=== PATIENT | female | born 1985 | race Two or more races ===

== ENCOUNTER 2016-12-29 14:59 | Emergency (ER) | payer OTHER ==
[~2016-12-29] VITALS: Ht 144.8 cm; Wt 92.0 kg
[2016-12-29 15:13] VITALS: Ht 144.8 cm; Wt 92.0 kg
--- NOTE | 2016-12-29 17:11 | RADRPT ---
PROCEDURE: Shoulder x-ray CLINICAL INDICATION: Pain TECHNIQUE: Left shoulder 3 views COMPARISON: None FINDINGS: 30 views of the left shoulder demonstrate no displaced fracture. The humeral head articulates anato mically with the glenoid fossa. The acromioclavicular articulation is within normal limits. Bones are normally mineralized. Soft tissues are unremarkable. IMPRESSION: No acute fracture dislocation No significant degenerate change RPTAT: HH .Oscar Zaragoza MD, MD Date Time Electronically viewed and signed by .Oscar Zaragoza MD, on 12/29/2016 17:11 .W/
--- NOTE | 2016-12-29 17:12 | RADRPT ---
PROCEDURE: XR Knee. CLINICAL INDICATION: Pain TECHNIQUE: AP, lateral and oblique view of the left knee were obtained. The images reviewed on a PACS workstation. COMPARISON: None. FINDINGS: Three views of the left knee demonstrate no displaced fracture. No gross malalignment is seen. The re is no significant degenerate change. No patellofemoral disease is identified. No knee joint effus ion is seen.. The bones normally mineralized. The soft tissues are unremarkable. IMPRESSION: No acute fracture dislocation RPTAT: HH .Oscar Zaragoza MD, MD Date Time Electronically viewed and signed by .Oscar Zaragoza MD, on 12/29/2016 17:11 .W/
--- NOTE | 2016-12-29 17:14 | RADRPT ---
PROCEDURE: XR Lumbar Spine. CLINICAL INDICATION: Low back pain. TECHNIQUE: Three views of the lumbar spine are available for review COMPARISON: None available FINDINGS: There is straightening of normal lumbar lordosis. Alignment is intact. No acute fracture or disloc ation is seen. The vertebral body heights and disc spaces are preserved. IMPRESSION: 1. No acute fracture or dislocation. 2. Straightening of the normal lumbar lordosis. RPTAT: HH .Ravin Don MD, Date Time Electronically viewed and signed by .Ravin Don MD, on 12/29/2016 17:14 .N/
[2016-12-29] MEDS ORDERED: KETOROLAC 30 MG INJ IM STA (17:18)
[2016-12-29] MEDS ORDERED: IBUP-1542 PO (17:23)
--- NOTE | 2016-12-29 17:43 | ERD ---
ER Documentation Chief Complaint Chief Complaint pt bib family with c/o back and knee pain for a few days HPI Patient is a 31-year-old female with a history of pituitary tumor removal who presents to the ED for concerns of back pain, left shoulder pain and left knee pain. Patient states she has had back pain for the last year. Patient describes the pain to be episodic in nature. Patient denies any falls or trauma. Patient states the pain is worse with movement. Patient denies any saddle anesthesia, urinary incontinence, stool incontinence. Patient also reports left shoulder pain. Patient states the pain has been present for the last 2 months. Patient states the pain does not radiate. Patient is right- hand dominant. Patient also reports left knee pain. She states she did fall on her knee one year ago. Patient denies any recent falls or trauma. Patient is able to ambulate without any difficulty. Patient denies any fevers or chills. Patient denies any nausea or vomiting. Patient's staters her last menstrual period was 4 months ago, admits to irregular periods. ROS All systems reviewed and are negative except as per history of present illness. Medications Home Meds Active Scripts Ibuprofen* (Motrin*) 600 Mg Tab, 600 MG PO Q6, #30 TAB Prov:MARJORIE VALDEZ PA-C 12/29/16 Allergies Allergies: Coded Allergies: ondansetron (Unverified Allergy, Intermediate, 12/29/16) prochlorperazine (Verified Allergy, Mild, 12/29/16) PMhx/Soc History of Surgery: Yes (pituitary ) Anesthesia Reaction: No Hx Neurological Disorder: No Hx Respiratory Disorders: No Hx Cardiac Disorders: No Hx Psychiatric Problems: No Hx Miscellaneous Medical Probl: Yes (lumbar leak) Hx Alcohol Use: Yes (social drinker) Hx Substance Use: Yes (cannabis) Hx Tobacco Use: No Smoking Status: Current some day smoker Physical Exam Vitals Vital Signs Date Time Temp Pulse Resp B/P Pulse Ox O2 Delivery O2 Flow Rate FiO2 12/29/16 15:13 98.7 86 16 124/76 98 Physical Exam GENERAL: Well-developed, well-nourished female. Appears in no acute distress. HEAD: Normocephalic, atraumatic. EYES: Pupils are equally reactive bilaterally. EOMs grossly intact. No conjunctival erythema. NECK: Supple. No meningismus. Normal range of motion of the neck. No Cervical midline tenderness. LUNGS: Clear to auscultation bilaterally. No rhonchi, wheezing, rales or coarse breath sounds. HEART: Regular rate and rhythm. No murmurs, rubs or gallops. BACK: No midline tenderness. EXTREMITIES: Equal pulses bilaterally. No peripheral clubbing, cyanosis or edema. No unilateral leg swelling. NEUROLOGIC: Alert and oriented. Moving all four extremities without any difficulty. Normal speech. Steady gait. SKIN: Normal color. Warm and dry. No rashes or lesions. LEFT SHOULDER: No deformity, erythema, ecchymosis or swelling. Skin intact. No bursal swelling. Full ROM of the shoulder and elbow. Tender to palpation over the distal scapula. Tender to palpation of the distal humerus, elbow, forearm, wrist... Sensation intact to light touch. Neurovascularly intact. (Able to give thumbs up, make an ok sign, cross digits 2 and 3, thumb to pinky opposition. 2+ RP.) No snuffbox tenderness. LEFT KNEE: No deformity, erythema, ecchymosis or swelling. Full range of motion of the knee and ankle. Tender to palpation over the anterior knee. Sensation intact to light touch. Neurovascularly intact. (Able to plantarflex, dorsiflex, lalo foot, invert foot, raise big toe.) 2+ DT pulses. Results 24 hrs Current Medications Medications (Trade) Dose Ordered Sig/Kulwant Route PRN Reason Start Time Stop Time Status Last Admin Dose Admin Ketorolac Tromethamine (Toradol) 30 mg ONCE STAT IM 12/29/16 17:18 12/29/16 17:19 DC 12/29/16 17:26 Procedures/MDM ED COURSE: The patient was stable throughout ED course. I kept the patient and/or family informed of laboratory and diagnostic imaging results throughout the ED course. DIAGNOSTIC IMAGING: Read by radiologist. Patient: LUIGI LOZANO : 1985 Age: 31 Sex: F MR #: [id number] DOS: 12/29/16 1607 Ordering MD: MARJORIE VALDEZ PA-C Location: [facility] Room/Bed: PROCEDURE: XR Knee. CLINICAL INDICATION: Pain TECHNIQUE: AP, lateral and oblique view of the left knee were obtained. The images reviewed on a PACS workstation. COMPARISON: None. FINDINGS: Three views of the left knee demonstrate no displaced fracture. No gross malalignment is seen. There is no significant degenerate change. No patellofemoral disease is identified. No knee joint effusion is seen.. The bones normally mineralized. The soft tissues are unremarkable. IMPRESSION: No acute fracture dislocation RPTAT: .Oscar Zaragoza MD, MD Date Time Electronically viewed and signed by .Oscar Zaragoza MD, MD on 12/29/2016 17:11 .W/ CC: MARJORIE VALDEZ PA-C Patient: LUIGI LOZANO : 1985 Age: 31 Sex: F MR #: [id number] DOS: 12/29/16 1607 Ordering MD: MARJORIE VALDEZ PA-C Location: [facility] Room/Bed: PROCEDURE: XR Lumbar Spine. CLINICAL INDICATION: Low back pain. TECHNIQUE: Three views of the lumbar spine are available for review COMPARISON: None available FINDINGS: There is straightening of normal lumbar lordosis. Alignment is intact. No acute fracture or dislocation is seen. The vertebral body heights and disc spaces are preserved. IMPRESSION: 1. No acute fracture or dislocation. 2. Straightening of the normal lumbar lordosis. RPTAT: .Ravin Don MD, MD Date Time Electronically viewed and signed by .Ravin Don MD, MD on 12/29/2016 17: 14 .N/ CC: MARJORIE VALDEZ PA-C Patient: LUIGI LOZANO : 1985 Age: 31 Sex: F MR #: [id number] DOS: 12/29/16 1607 Ordering MD: MARJORIE VALDEZ PA-C Location: [facility] Room/Bed: PROCEDURE: Shoulder x-ray CLINICAL INDICATION: Pain TECHNIQUE: Left shoulder 3 views COMPARISON: None FINDINGS: 30 views of the left shoulder demonstrate no displaced fracture. The humeral head articulates anatomically with the glenoid fossa. The acromioclavicular articulation is within normal limits. Bones are normally mineralized. Soft tissues are unremarkable. IMPRESSION: No acute fracture dislocation No significant degenerate change RPTAT: HH .Oscar Zaragoza MD, Date Time Electronically viewed and signed by .Oscar Zaragoza MD, on 12/29/2016 17:11 .W/ CC: MARJORIE VALDEZ PA-C PROCEDURES: None. MEDICATIONS GIVEN: Toradol IM Patient tolerated medication well with no adverse reactions. MEDICAL DECISION MAKING: This is a 31-year-old female who presents to the ED with multiple concerns including back pain, left shoulder pain and left knee pain. Vital signs were reviewed. Patient was afebrile. Patient was not hypoxic. test is negative. He was given Toradol. Patient reported improvement in pain after receiving this medication. Patient denied any saddle anesthesia, urinary incontinence, bowel incontinence. Xray imaging of the lumbar spine, left shoulder and left knee were all unremarkable. Given these findings, the patient 's presentation is most consistent with lower back pain, left shoulder pain and left knee pain. Low suspicion for cauda equine syndrome, spinal fractures, epidural abscess, spinal metastases, pyelonephritis, nephrolithiasis, shoulder dislocation, humerus fracture, patellar fracture, knee dislocation, osteomyelitis, DVT or compartment syndrome. Patient was advised that she should follow-up with her primary care physician for referral for an MRI if her pain persists. PRESCRIPTIONS: Ibuprofen DISCHARGE: At this time, patient is stable for discharge and outpatient management. RICE therapy and ROM exercises were advised to avoid stiffness. I have instructed the patient to follow-up with his/her primary care physician in 1-2 days. I have discussed with the patient the possibility of needing to see an product specialist for further workup and imaging if the pain persists. I have instructed the patient to promptly return to the ER for any new or worsening symptoms including increased pain, swelling, warmth, urinary incontinence, stool incontinence, weakness or numbness. The patient and/or family expressed understanding of and agreement with this plan. All questions were answered. Home care instructions were provided. Disclaimer: Inadvertent spelling and grammatical errors are likely due to EHR/ dictation software use and do not reflect on the overall quality of patient care. Also, please note that the electronic time recorded on this note does not necessarily reflect the actual time of the patient encounter. Departure Diagnosis: Primary Impression: Back pain Back pain location: low back pain Chronicity: unspecified Back pain laterality: unspecified Sciatica presence: unspecified whether sciatica present Qualified Code: M54.5 - Low back pain, unspecified back pain laterality, unspecified chronicity, with sciatica presence unspecified Additional Impressions: Left shoulder pain Chronicity: acute Qualified Code: M25.512 - Acute pain of left shoulder Left knee pain Chronicity: acute Qualified Code: M25.562 - Acute pain of left knee Condition: Stable Patient Instructions: Back Pain (Acute Or Chronic), Knee Pain, Uncertain Cause Referrals: [facility] YOU HAVE RECEIVED A MEDICAL SCREENING EXAM AND THE RESULTS INDICATE THAT YOU DO NOT HAVE A CONDITION THAT REQUIRES URGENT TREATMENT IN THE EMERGENCY DEPARTMENT. FURTHER EVALUATION AND TREATMENT OF YOUR CONDITION CAN WAIT UNTIL YOU ARE SEEN IN YOUR DOCTORS OFFICE WITHIN THE NEXT 1-2 DAYS. IT IS YOUR RESPONSIBILITY TO MAKE AN APPOINTMENT FOR FOLOW-UP CARE. IF YOU HAVE A PRIMARY DOCTOR --you should call your primary doctor and schedule an appointment IF YOU DO NOT HAVE A PRIMARY DOCTOR YOU CAN CALL OUR PHYSICIAN REFERRAL HOTLINE AT IF YOU CAN NOT AFFORD TO SEE A PHYSICIAN YOU CAN CHOSE FROM THE FOLLOWING [facility] [address] [facility] [address] [facility] [address] [facility] [address] [facility] [address] [facility] [address] [facility]. [facility] YOU HAVE RECEIVED A MEDICAL SCREENING EXAM AND THE RESULTS INDICATE THAT YOU DO NOT HAVE A CONDITION THAT REQUIRES URGENT TREATMENT IN THE EMERGENCY DEPARTMENT. FURTHER EVALUATION AND TREATMENT OF YOUR CONDITION CAN WAIT UNTIL YOU ARE SEEN IN YOUR DOCTORS OFFICE WITHIN THE NEXT 1-2 DAYS. IT IS YOUR RESPONSIBILITY TO MAKE AN APPOINTMENT FOR FOLOW-UP CARE. IF YOU HAVE A PRIMARY DOCTOR --you should call your primary doctor and schedule and appointment IF YOU DO NOT HAVE A PRIMARY DOCTOR YOU CAN CALL OUR PHYSICIAN REFERRAL HOTLINE AT . IF YOU CAN NOT AFFORD TO SEE A PHYSICIAN YOU CAN CHOSE FROM THE FOLLOWING [facility] INSTITUTIONS: [facility] [address] [place] [address] [facility] [address] [place], [place] [id number] [place] [address] [address] [place] [address] [facility] Hours: Mon-Fri 9:00 AM - 5:00 PM Additional Instructions: Call your primary care doctor TOMORROW for an appointment during the next 1-2 days.See the doctor sooner or return here if your condition worsens before your appointment time. You may need MRI on outpatient basis if pain persists. Orthopedic referral given. MARJORIE VALDEZ PA-C Dec 29, 2016 17:43
== END 2016-12-29 17:41 | disposition home or self-care (01) ==
LOC: FTE 14:59
DX: M54.5 Low back pain (principal); M25.512 Pain in left shoulder; M25.562 Pain in left knee
CPT/HCPCS: 72100; 73030; 73562; 96372; J1885; Z7502

== ENCOUNTER 2018-03-29 08:32 | Emergency (ER) | payer OTHER ==
[~2018-03-29] VITALS: Ht 147.3 cm; Wt 88.5 kg
[~2018-03-29 08:32] MED LIST: IBUP-1542 PO
[2018-03-29 08:35] VITALS: BP 134/75; PULSE 81; RESP 20; Ht 147.3 cm; Wt 88.5 kg
[2018-03-29] MEDS ORDERED: METOCLOPRAMIDE 10 MG INJ IV ONE (09:00)
[2018-03-29] MEDS ORDERED: DIPHENHYDRAMINE 50 MG INJ IV ONE (09:00)
[2018-03-29] MEDS ORDERED: SOD CHLORIDE 0.9% 1,000 ML IV ONE (09:00)
[2018-03-29] MEDS ORDERED: LORAZEPAM 2 MG INJ IV ONE (10:00)
--- NOTE | 2018-03-29 18:30 | ERD ---
ER Documentation Chief Complaint Chief Complaint c/o vomitting and diarrhea since 7 pm HPI 33-year-old female patient with past medical history of anxiety presents to ED complaining of vomiting and diarrhea that started earlier this morning. Patient reports that she ate toast, felt nauseous afterwards, yesterday. Denies any fever, chest pain, abdominal pain, chills, nausea, vomiting, diarrhea, neck stiffness. ROS All systems reviewed and are negative except as per history of present illness. Medications Home Meds Active Scripts Ibuprofen* (Motrin*) 600 Mg Tab, 600 MG PO Q6, #30 TAB Prov:MARJORIE VALDEZ PA-C 12/29/16 Allergies Allergies: Coded Allergies: ondansetron (Unverified Allergy, Intermediate, 12/29/16) prochlorperazine (Verified Allergy, Mild, 12/29/16) PMhx/Soc History of Surgery: Yes (pituitary ) Anesthesia Reaction: No Hx Neurological Disorder: No Hx Respiratory Disorders: No Hx Cardiac Disorders: No Hx Psychiatric Problems: Yes (ANXIETY) Hx Miscellaneous Medical Probl: Yes (lumbar leak) Hx Alcohol Use: Yes (social drinker) Hx Substance Use: Yes (cannabis) Hx Tobacco Use: Yes Smoking Status: Current every day smoker FmHx Family History: No diabetes, No coronary disease Physical Exam Vitals Vital Signs Date Temp Pulse Resp B/P (MAP) Pulse Ox O2 O2 Flow FiO2 Time Delivery Rate 03/29/18 98.9 81 20 134/75 97 08:35 (94) Physical Exam Const: [id number], well-nourished. In no acute distress. Head: Atraumatic, normocephalic Eyes: Normal Conjunctiva without injection. No purulent discharge. ENT: Normal external ear, nose. Moist oropharynx without tonsillar exudates. Non-erythematous pharynx. Uvula midline. No drooling. No trismus. Neck: No cervical midline tenderness. Full range of motion. No meningismus. No cervical lymphadenopathy. No JVD. Resp: Clear to auscultation bilaterally. No wheezing, rhonchi, rales, or crackles. No accessory muscle use. No retractions. Cardio: Regular rate and rhythm. No murmurs, rubs or gallops. Abd: Soft, non distended. Normal bowel sounds. No palpable masses. No rebound tenderness. No guarding. Negative McBurney's point. Negative psoas sign. Negative obturator sign. : See exam in MDM. Skin: No petechiae or rashes Back: No midline tenderness. No CVA tenderness. Ext: No cyanosis, or edema. Neur: Awake and alert. Normal gait. Normal coordination. Psych: Normal Mood and Affect Results 24 hrs Laboratory Tests Test 03/29/18 08:55 03/29/18 09:18 03/29/18 09:26 Urine Color KATHY Urine Clarity CLOUDY Urine pH 5.0 Urine Specific [place] 1.031 Urine Ketones NEGATIVE mg/dL Urine Nitrite NEGATIVE mg/dL Urine Bilirubin 1+ mg/dL Urine Urobilinogen NEGATIVE mg/dL Urine Leukocyte Esterase NEGATIVE Dagoberto/ul Urine Microscopic RBC 9 /HPF Urine Microscopic WBC 17 /HPF Urine Squamous Epithelial Cells MANY /HPF Urine Bacteria FEW /HPF Urine Mucus MANY /HPF Urine Hemoglobin NEGATIVE mg/dL Urine Glucose NEGATIVE mg/dL Urine Total Protein 3+ mg/dl White Blood Count 11.0 10^3/ul Red Blood Count 5.52 10^6/ul Hemoglobin 16.2 g/dl Hematocrit 48.9 % Mean Corpuscular Volume 88.6 fl Mean Corpuscular Hemoglobin 29.3 pg Mean Corpuscular 33.1 g/dl Hemoglobin Concent Red Cell Distribution Width 12.3 % Platelet Count 368 10^3/UL Mean Platelet Volume 11.4 fl Immature Granulocytes % 0.400 % Neutrophils % 90.7 % Lymphocytes % 4.3 % Monocytes % 3.8 % Eosinophils % 0.3 % Basophils % 0.5 % Nucleated Red Blood Cells % 0.0 /100WBC Immature Granulocytes # 0.040 10^3/ul Neutrophils # 10.0 10^3/ul Lymphocytes # 0.5 10^3/ul Monocytes # 0.4 10^3/ul Eosinophils # 0.0 10^3/ul Basophils # 0.1 10^3/ul Nucleated Red Blood Cells # 0.0 10^3/ul Sodium Level 142 mmol/L Potassium Level 4.5 mmol/L Chloride Level 104 mmol/L Carbon Dioxide Level 21 mmol/L Anion Gap 17 Blood Urea Nitrogen 21 mg/dl Creatinine 0.79 mg/dl Est Glomerular Filtrat > 60 mL/min Rate mL/min Glucose Level 120 mg/dl Calcium Level 10.4 mg/dl Total Bilirubin 0.5 mg/dl Direct Bilirubin 0.00 mg/dl Indirect Bilirubin 0.5 mg/dl Aspartate Amino 36 IU/L Transf (AST/SGOT) Alanine 17 IU/L Aminotransferase (ALT/SGPT) Alkaline Phosphatase 110 IU/L Total Protein 9.3 g/dl Albumin 5.4 g/dl Globulin 3.90 g/dl Albumin/Globulin Ratio 1.38 Lipase 156 U/L POC Beta HCG, Qualitative NEGATIVE Current Medications Medications Dose Sig/Kulwant Start Time Status Last (Trade) Ordered Route PRN Stop Time Admin Dose Reason Admin Sodium 1,000 ml @ Q1H ONCE 03/29/18 DC 03/29/18 Chloride 1,000 mls/hr IV 09:00 09:24 03/29/18 09:59 10 mg ONCE ONCE 03/29/18 DC 03/29/18 Metoclopramid IV 09:00 09:24 e HCl 03/29/18 09:01 (Reglan) 25 mg ONCE ONCE 03/29/18 DC 03/29/18 Diphenhydrami IV 09:00 09:24 ne HCl 03/29/18 09:01 (Benadryl) Lorazepam 1 mg ONCE ONCE 03/29/18 DC 03/29/18 (Ativan) IV 10:00 09:50 03/29/18 10:01 Procedures/MDM 33-year-old female patient with no significant past medical history presents to ED complaining of vomiting and diarrhea. Patient is afebrile and nontoxic- appearing. She was given Reglan IV 10 mg, Benadryl 25 mg IV, Ativan 1 mg IV here in the ED with improvement of her symptoms. CBC: No leukocytosis. No e/o of systemic infection. No e/o anemia. CMP: No e/o severe acidosis, alkalosis, renal failure, diabetic ketoacidosis, liver disease Lipase within normal limits. Urine: No leukocyte esterase, no nitrites, no hematuria. Urine : Negative Symptoms are likely secondary to viral etiology. Low suspicion for ectopic , ovarian torsion, gastritis, GERD, peptic ulcer disease, cholecystitis, choledocholithiasis, cholangitis, pancreatitis, appendicitis, bowel obstruction, ileus, volvulus, nephrolithiasis, pyelonephritis, hepatitis, perforated viscus, diverticulitis, strangulated/incarcerated hernia, DKA, acute abdomen, mesenteric ischemia or other emergent conditions. Diagnosis: Diarrhea and vomiting Follow up with primary care physician in 1-2 days. Instructed patient to return to the ED sooner for any worsening symptoms. Patient's questions were answered. Patient is hemodynamically stable. Patient understood and agreed with discharge plan. Patient discharged stable. Disclaimer: Inadvertent spelling and grammatical errors are likely due to EHR/dictation software use and do not reflect on the overall quality of patient care. Also, please note that the electronic time recorded on this note does not necessarily reflect the actual time of the patient encounter. Departure Diagnosis: Primary Impression: Vomiting and diarrhea Condition: Stable Patient Instructions: Self-Care for Vomiting and Diarrhea, Anxiety Reaction, Vomiting And Diarrhea, Nonspecific (Adult) Referrals: [facility] YOU HAVE RECEIVED A MEDICAL SCREENING EXAM AND THE RESULTS INDICATE THAT YOU DO NOT HAVE A CONDITION THAT REQUIRES URGENT TREATMENT IN THE EMERGENCY DEPARTMENT. FURTHER EVALUATION AND TREATMENT OF YOUR CONDITION CAN WAIT UNTIL YOU ARE SEEN I N YOUR DOCTORS OFFICE WITHIN THE NEXT 1-2 DAYS. IT IS YOUR RESPONSIBILITY TO MAKE AN APPOINTMENT FOR FOLOW-UP CARE. IF YOU HAVE A PRIMARY DOCTOR --you should call your primary doctor and schedule an appointment IF YOU DO NOT HAVE A PRIMARY DOCTOR YOU CAN CALL OUR PHYSICIAN REFERRAL HOTLINE AT IF YOU CAN NOT AFFORD TO SEE A PHYSICIAN YOU CAN CHOSE FROM THE FOLLOWING [facility] [address] [facility]. [facility] [address] [facility]. [facility] [address] [facility]. [facility] [address] [facility] [address] [facility]. [facility]. [address] [facility]. [facility] YOU HAVE RECEIVED A MEDICAL SCREENING EXAM AND THE RESULTS INDICATE THAT YOU DO NOT HAVE A CONDITION THAT REQUIRES URGENT TREATMENT IN THE EMERGENCY DEPARTMENT. FURTHER EVALUATION AND TREATMENT OF YOUR CONDITION CAN WAIT UNTIL YOU ARE SEEN IN YOUR DOCTORS OFFICE WITHIN THE NEXT 1-2 DAYS. IT IS YOUR RESPONSIBILITY TO MAKE AN APPOINTMENT FOR FOLOW-UP CARE. IF YOU HAVE A PRIMARY DOCTOR --you should call your primary doctor and schedule and appointment IF YOU DO NOT HAVE A PRIMARY DOCTOR YOU CAN CALL OUR PHYSICIAN REFERRAL HOTLINE AT . IF YOU CAN NOT AFFORD TO SEE A PHYSICIAN YOU CAN CHOSE FROM THE FOLLOWING [facility] INSTITUTIONS: [facility] [address] [place] [address] [facility] [address] [place] [address] [facility] [address] [place] [address] [facility] Additional Instructions: Call your primary care doctor TOMORROW for an appointment during the next 2-3 days.See the doctor sooner or return here if your condition worsens before your appointment time. ROSALIE JONES PA-C Mar 29, 2018 18:30
== END 2018-03-29 10:42 | disposition home or self-care (01) ==
LOC: FTE 08:32
DX: R11.2 Nausea with vomiting, unspecified (principal); R19.7 Diarrhea, unspecified; F17.210 Nicotine dependence, cigarettes, uncomplicated
CPT/HCPCS: 36415; 80053; 81001; 81025; 83690; 85025; 96361; 96374; 96375; J1200; J2060; J2765; J7030; Z7502